=== PATIENT | male | born 1975 | race Two or more races ===

== ENCOUNTER → 2021-01-15 | Outpatient (CLI) | payer OTHER | END | disposition home or self-care (01) | LOC: PPH VACUNA 04:03 | DX: Z23 Encounter for immunization (principal) ==

== ENCOUNTER → 2021-02-05 23:11 | Outpatient (CLI) | payer OTHER | END | disposition home or self-care (01) | LOC: PPH VACUNA 23:11 | DX: Z23 Encounter for immunization (principal) ==